=== PATIENT | female | born 1995 | race Caucasian/White ===

== ENCOUNTER 2019-11-16 19:35 | Inpatient (IN) ==
[2019-11-16] MEDS ORDERED: OXYTOCIN 30 UNITS/500 ML BAG IV PRN (20:30)
--- NOTE | 2019-11-16 20:36 | History & Physical Report ---
Date of Service November 16, 2019 Assessment & Plan (1) Uterine contractions at greater than 20 weeks of gestation: Patient is a 23 yo at 39.3 wks with regular and painful ctxs VSS Afebrile Early labor FHR reassuring GBS negative Plan to admit monitor and labs History of Present Illness Primary Care Provider: Agnieszka Bedolla, DO 23 yo at 39.3 wks started to feel ctxs about 3 hours ago, getting more closer and regular and painful Pain is 10/10 No LOF/VB +FM Her has been complicated by 1) h/o depression on Zoloft 2) h/o chlamydia at [facility] visit, repeat on 3dr trimester was negative Allergies Allergy/AdvReac Type Severity Reaction Status Date / Time No Known Allergies Allergy Mild Verified 11/16/19 19:44 Home Medications Home Medications Medication Instructions Recorded Confirmed Type vit-iron fum-folic ac 1 tab PO DAILY 10/14/19 11/16/19 History [ Vitamin] sertraline [Zoloft] 75 mg PO DAILY 10/14/19 11/16/19 History Patient History Social History Preferred Language: Romanian Communication Ability: Effective [employer] Required: No Beliefs That Will Affect Care: None marital status: Single Current Living Situation: Significant Other Current Living Situation Comment: lives with her father Other Information That Helps Us Care for You: No Feels Safe at Home: Yes Safety Concerns: Feels Safe At This Time Smoking Status: Former smoker Second Hand Exposure: No ; Hx Alcohol Use: No Hx Substance Use: Yes substance use type: marijuana Substance Use Type Other:: medical [employer] card Last Used Substance: Hours (ago) Last Used Substance Other:: 1300 [employer]UC[employer] History no h/o genital HSV Review of Systems All systems reviewed & are unremarkable except as noted in HPI & below Physical Exam Constitutional: WD/WN, vitals as above well developed, well nourished and + acute distress (Crying with ctxs) Gastrointestinal (Abdomen): normal bowel sounds, soft, nontender, no hepatosp lenomegaly (gravid) Genitourinary: normal external appearance OB Exam Abdomen: + vertex and + r egular contractions Manual OB Exam: + cervical dilation 2 cm, + cervical effacement 80% and + station (bulging bag) -2 OB Exam Monitor Tracing: + category I Results & Data Vital Signs (Past 12 Hours) Vital Signs Temp Pulse Resp BP 11/16/19 19:46 36.8 C 66 18 127/74 11/16/19 19:42 36.8 C 66 18 127/74
[2019-11-16 20:57] LABS: Hematocrit (blood only) 37.6 % (37-47); Hemoglobin 12.2 g/dL (12.0-16.0); Mean Corpuscular Volume 83.2 fL (80-100); Mean Platelet Volume 10.2 fL (7.4-10.4); Platelet Count 311 K/uL (130-400); RDW Coefficient of Variation 14.1 % (11.5-14.5); RDW Standard Deviation 42.9 fL (36.4-46.3); Red Blood Count 4.52 M/uL (4.2-5.4); White Blood Count 17.59 K/uL (4.8-10.8)
[2019-11-16 21:10] LABS: Mean Corpuscular Hgb Conc 32.4 g/dL (32-36)
[2019-11-16] MEDS ORDERED: CALCIUM CARBONATE 500 MG CHEWABLE TAB PO PRN (21:29)
[2019-11-16] MEDS: ONDANSETRON INJ 2 MG/ML 2 ML VIAL IV PRN (21:38)
[2019-11-16] MEDS ORDERED: LACTATED RINGER'S 1,000 ML IV ONE (22:20)
[2019-11-16] MEDS ORDERED: BUTORPHANOL TARTRATE 1 MG/ML VIAL IV ONE (22:20)
--- NOTE | 2019-11-16 22:22 | Obstetrical Progress Note ---
Date of Service November 16, 2019 Assessment & Plan Admission and Anticipated Discharge Date Admission Date: November 16, 2019 Subjective Patient is getting more painful Declines epidural Discussed pain management during labor, IV pain meds and epidural and she desires IV pain meds VE: 3/ 80%/ -2, bulging bag+ FHR categ I Continue to monitor closely Results & Data ([facility]) Vital Signs (Past 12 Hours) Vital Signs Temp Pulse Resp BP 11/16/19 19:46 36.8 C 66 18 127/74 11/16/19 19:42 36.8 C 66 18 127/74
[2019-11-16] MEDS: LACTATED RINGER'S 1,000 ML IV PRN (22:23)
[2019-11-17] MEDS ORDERED: ePHEDrine sulfate 50 MG/ML AMP ONE (01:28)
[2019-11-17] MEDS ORDERED: BUPIVACAINE 0.25% 30 ML VIAL ONE (01:28)
[2019-11-17] MEDS ORDERED: fentaNYL citrate 100 MCG/2 ML VIAL ONE (01:29)
[2019-11-17] MEDS ORDERED: fentaNYL 2MCG/ML ROPIV 1.25MG/ML 100 ML BAG EPI ONE (01:29)
[2019-11-17] MEDS ORDERED: BUTORPHANOL TARTRATE 1 MG/ML VIAL IV ONE (01:45)
[2019-11-17] MEDS: LACTATED RINGER'S 1,000 ML IV PRN ×2 (02:12→05:23)
--- NOTE | 2019-11-17 02:27 | Anesthesiology Consultation ---
Date of Service November 17, 2019 Assessment & Plan Chart Review Chart Review: Acceptable Risk for Labor Epidural Consults Requested none Proposed Anesthesia Risk / Benefits Reviewed With: PT / POA / Parent / Guardian, Accepts Plan and Informed Consent Obtained History Height/Weight Height: 5 ft 7 in Weight: 87.09 kg Allergies Allergy/AdvReac Type Severity Reaction Status Date / Time No Known Allergies Allergy Mild Verified 11/16/19 19:44 Medications Home Medications Medication Instructions Recorded Confirmed Last Taken vit-iron fum-folic ac 1 tab PO DAILY 10/14/19 11/16/19 11/16/19 11:00 [ Vitamin] sertraline [Zoloft] 75 mg PO DAILY 10/14/19 11/16/19 11/16/19 11:00 Active Medications Generic Name Dose Route Start Last Admin Trade Name Freq PRN Reason Stop Dose Admin Lactated Ringer's 1,000 mls @ 150 mls/hr 11/16/19 20:30 11/17/19 02:12 Lr IV 11/18/19 20:29 150 mls/hr .[id number] PRN Administration L&D Protocol Protocol Ondansetron HCl 4 mg 11/16/19 21:29 11/16/19 21:38 Zofran IV 12/16/19 21:28 4 mg Q4H PRN Administration Nausea Past Medical History Medical History Anxiety Depression Social History Smoking Status: Former smoker Hx Alcohol Use: No Hx Substance Use: Yes substance use type: marijuana Substance Use Type Other:: medical marijuna card Last Used Substance: Hours (ago) Last Used Substance Other:: 1300 Physical Exam Vital Signs Last Vital Signs Temp 36.4 C L 11/16/19 22:46 Pulse 72 11/17/19 02:22 Resp 16 11/16/19 23:30 BP 124/74 11/17/19 02:21 Pulse Ox 100 11/17/19 02:22 Testing Laboratory Results 11/16/19 20:45
[2019-11-17] MEDS ORDERED: fentaNYL 2MCG/ML ROPIV 1.25MG/ML 100 ML BAG EPI PRN (02:29)
[2019-11-17] MEDS ORDERED: DiphenhydrAMINE HCL 50 MG/ML VIAL IV PRN (02:29)
[2019-11-17] MEDS ORDERED: NALOXONE HCL 1 MG in SODIUM CHLORIDE 0.9% 1000ML 1,000 ML IV PRN (02:29)
[2019-11-17] MEDS ORDERED: NALOXONE HCL 0.4 MG/1 ML VIAL/CARP IV PRN (02:29)
[2019-11-17] MEDS ORDERED: ePHEDrine sulfate 50 MG/ML AMP IV PRN (02:29)
[2019-11-17] MEDS: ONDANSETRON INJ 2 MG/ML 2 ML VIAL IV PRN (03:43)
[2019-11-17] MEDS ORDERED: miSOPROStoL 200 MCG TAB ONE (06:22)
[2019-11-17] MEDS ORDERED: miSOPROStoL 200 MCG TAB PR ONE (06:43)
[2019-11-17] MEDS ORDERED: ACETAMINOPHEN 325 MG TAB PO PRN (06:43)
[2019-11-17] MEDS ORDERED: MEASLES, MUMPS & RUBELLA VIRUS VIAL SQ ONE (06:43)
[2019-11-17] MEDS ORDERED: HYDROCORTISONE ACETATE 25 MG SUPP PR PRN (06:43)
[2019-11-17] MEDS ORDERED: OXYCODONE/ACETAMINOPHEN 5mg/325mg TAB PO PRN (06:43)
[2019-11-17] MEDS ORDERED: bisacodyL 10 MG SUPP PR PRN (06:43)
[2019-11-17] MEDS ORDERED: OXYTOCIN 30 UNITS/500 ML BAG IV PRN (06:43)
[2019-11-17] MEDS ORDERED: DIPHTHERIA/TETANUS/PERTUSSIS 0.5 ML SYR/VIAL IM ONE (06:43)
[2019-11-17] MEDS ORDERED: SUPERCREAM 0.870% 15 GM JAR EXT PRN (06:43)
[2019-11-17] MEDS ORDERED: BENZOCAINE 20% AER SPR 82.5 GM CAN EXT PRN (06:43)
--- NOTE | 2019-11-17 09:05 | Delivery Summary ---
DATE OF OPERATION: 11/17/2019 TIME: 05:59 a.m. DETAILS OF DELIVERY: The patient was found to be fully dilated and desired to push. She pushed for about half an hour and then heart rate was at 60s and the head was with a tight band of vagina, hymenal ring around the head. Decision was made to open a small right mediolateral episiotomy on the skin. Right after that, baby's head was delivered without difficulty, shoulders were delivered with minimal traction. Baby was handed off to the mother where mouth and nose were suctioned. Cord was clamped x2 and cut . The cord blood was obtained. The vagina and perineum were checked for lacerations. There was a small episiotomy line on the right side of labial skin involving small amount of muscles. It was repaired with 2-0 Vicryl in a running locked fashion. Excellent hemostasis was achieved. No other lacerations were found. Placenta was found to be in the vagina, delivered spontaneous as intact and complete. Uterus was explored, found to be empty. Lower segment was cleared of all clots and debris. EBL was 300 mL. The patient was started IV oxytocin and rectal Cytotec was given. Mom and baby tolerated the procedure well. Sponge, lap, needle count was correct x2. Baby was a viable female infant, Apgars 8/9. No complications happened and I was present during whole procedure. I attest to the content of the Intraoperative Record and any orders documented therein. Any exceptions are noted below. JANETHD
--- NOTE | 2019-11-17 09:14 | Anesthesia Procedure Note ---
Date of Service November 17, 2019 Anesthesia Post Epidural Note Vital Signs Vital Signs: Temp Pulse Resp BP Pulse Ox 98.1 F 75 18 136/76 100 11/17/19 06:23 11/17/19 09:09 11/17/19 06:54 11/17/19 09:09 11/17/19 06:23 Pain Intensity Episiotomy/Laceration: Pain Intensity: 2 Notes Mental Status: alert / awake / arousable and participated in evaluation Nausea / Vomiting: adequately controlled Pain: adequately controlled Airway Patency, RR, SpO2: stable & adequate BP & HR: stable & adequate Hydration State: stable & adequate Neuraxial Anesthesia: was administered and sensory block is resolving Anesthetic Complications: no major complications apparent and Pt Satisfied with anesthetic care Epidural: Removed without complications and With tip intact
[2019-11-17] MEDS: IBUPROFEN 600 MG TAB PO PRN ×3 (12:21→21:02)
[2019-11-17] MEDS: FERROUS SULFATE 325 MG TAB PO SCH (15:31)
[2019-11-17] MEDS: DOCUSATE SODIUM 100 MG CAP PO SCH ×2 (15:31→21:02)
[2019-11-17] MEDS: PRENATAL VITAMIN 1 TAB PO SCH (15:31)
[2019-11-18] MEDS: IBUPROFEN 600 MG TAB PO PRN ×2 (06:07→13:10)
[2019-11-18 06:36] LABS: Hematocrit (blood only) 35.7 % (37-47); Hemoglobin 11.1 g/dL (12.0-16.0); Mean Corpuscular Hemoglobin 26.1 pg (25-34); Mean Corpuscular Hgb Conc 31.1 g/dL (32-36); Platelet Count 282 K/uL (130-400); RDW Coefficient of Variation 14.3 % (11.5-14.5); RDW Standard Deviation 43.9 fL (36.4-46.3); Red Blood Count 4.25 M/uL (4.2-5.4); White Blood Count 15.63 K/uL (4.8-10.8)
[2019-11-18] MEDS: DOCUSATE SODIUM 100 MG CAP PO SCH (07:49)
[2019-11-18] MEDS: PRENATAL VITAMIN 1 TAB PO SCH (07:49)
[2019-11-18] MEDS: FERROUS SULFATE 325 MG TAB PO SCH (07:49)
--- NOTE | 2019-11-18 08:34 | Obstetrical Progress Note ---
Date of Service November 18, 2019 Assessment & Plan (1) Normal course: PPD #1 pt doing well anticipate disch Results & Data Vital Signs (Past 12 Hours) Vital Signs Temp Pulse Resp BP Pulse Ox 11/18/19 03:30 36.8 C 63 20 110/67 99 11/17/19 23:45 36.6 C 59 L 20 113/72 99
[2019-11-18 13:34] VITALS: TEMP 98.1; O2SAT 98
[2019-11-18 13:44] VITALS: BP 112/67; PULSE 76
[2019-11-18] MEDS ORDERED: bisacodyL 5 MG TABEC PO SCH (20:00)
== END 2019-11-18 14:20 | disposition home or self-care (01) | DRG 807 ==
LOC: OPB 19:35 → 4S1 19:36 → 4S2 11-17 09:45